=== PATIENT | male | born 1950 | race Caucasian/White ===

== ENCOUNTER 2016-12-13 12:33 | Emergency (ER) | payer MEDICARE, OTHER ==
[2016-12-13] MEDS ORDERED: NALOXONE HCL INJ 2 MG/2 ML DISP.SYRIN ONE (13:15)
[2016-12-13] MEDS ORDERED: DEXTROSE 5%-LACTATED RINGERS 1,000 ML IV ONE (13:28)
[2016-12-13] MEDS ORDERED: NALOXONE HCL INJ 2 MG/2 ML DISP.SYRIN IV ONE ×2 (13:31→13:43)
--- NOTE | 2016-12-13 13:32 | ER Document Report ---
ED Syncope and Near Syncope - General Mode of Arrival: Medic Information source: Patient TRAVEL OUTSIDE OF THE [place] IN LAST 30 DAYS: No - HPI Patient complains to provider of: Fainting Episode witnessed (by whom): Yes Symptoms prior to episode: Other - see above Context: Other - see above Current symptoms: Other - see above <RADHA SIMONS - Last Filed: 12/13/16 13:33> <JOON ALVARADO - Last Filed: 12/13/16 14:30> - General Stated Complaint: POSSIBLE POST SURGICAL REACTION Time Seen by Provider: 12/13/16 13:21 Notes: 66 year old male with history of hyperlipidemia (taking Lipitor) presents to the ED via EMS after having a syncopal episode while at [facility] following drainage and removal of an infected cyst to his right posterior shoulder this morning. Patient was given 5 mg Valium and Percocet at 1020 this morning and had a recorded heart rate of 73. After the procedure, the patient was helped up when he proceeded to pass out. Patient's heart rate was recorded down in the 40s. Patient was brought to the ED with a heart rate in the low 40s and a respiratory rate of 8. Patient was barely arousable. Patient was given Narcan and is awake and smiling now. Patient reports that he does not remember passing out. Patient's last meal was last night, but admits to having some coffee at 0800 this morning. (RADHA SIMONS) The report is that when the patient was sat up post procedure, he became glassy eyed and unresponsive. When he came through the ER door his respiratory rate was 8. He responded promptly to Narcan. (JOON ALVARADO) - Related Data Allergies/Adverse Reactions: No Known Allergies Allergy (Unverified 03/27/12 08:34) Past Medical History - General Information source: Patient - Social History Smoking Status: Never Smoker Frequency of alcohol use: Occasional Family History: Malignancy - Father of colon cancer and mother of pancreatic cancer. - Past Medical History Cardiac Medical History: Reports: Hx Hypercholesterolemia Denies: Hx Coronary Artery Disease, Hx Hypertension Musculoskeltal Medical History: Denies Hx Arthritis Past Surgical History: Reports: Hx Orthopedic Surgery - Arthroscopic right knee surgery 2006, Other - Cyst removal 2015. Denies: Hx Pacemaker - Immunizations Hx Diphtheria, Pertussis, Tetanus Vaccination: No <RADHA SIMONS - Last Filed: 12/13/16 13:33> Review of Systems - Review of Systems Constitutional: No symptoms reported EENT: No symptoms reported Cardiovascular: See HPI, Other - bradycardia Respiratory: No symptoms reported Gastrointestinal: No symptoms reported Genitourinary: No symptoms reported Male Genitourinary: No symptoms reported Musculoskeletal: No symptoms reported Skin: No symptoms reported Hematologic/Lymphatic: No symptoms reported Neurological/Psychological: See HPI, Lost consciousness -: Yes All other systems reviewed and negative <RADHA SIMONS - Last Filed: 12/13/16 13:33> Physical Exam - Vital signs Interpretation: Bradycardic - heart rate in the upper 40s - General General appearance: Alert In distress: None - HEENT Head: Normocephalic, Atraumatic Eyes: Normal Extraocular movements intact: Yes Pupils: PERRL - Respiratory Respiratory status: No respiratory distress Breath sounds: Normal - Cardiovascular Rhythm: Regular Heart sounds: Normal auscultation - Abdominal Inspection: Normal - Back Back: Normal - Extremities General upper extremity: Normal inspection, Normal ROM, Other - Bandage to the right posterior shoulder secondary to the cyst removal this morning. General lower extremity: Normal inspection, Normal ROM - Neurological Neuro grossly intact: Yes - Psychological Associated symptoms: Normal affect, Normal mood - Skin Skin Temperature: Warm Skin Moisture: Dry Skin Color: Normal <RADHA SIMONS - Last Filed: 12/13/16 13:33> Course - Laboratory Result Diagrams: 12/13/16 13:02 12/13/16 13:02 <KRISTYNRADHA - Last Filed: 12/13/16 13:33> - Laboratory Result Diagrams: 12/13/16 13:02 12/13/16 13:02 <JOON ALVARADO - Last Filed: 12/13/16 14:30> - Re-evaluation Re-evalutation: 12/13/16 14:26 The patient received 1 L of D5 LR. He also recently urinated about 800 mls of dark urine. He was given a Styrofoam cup to drink several cups of water before being discharged. (JOON ALVARADO) - Vital Signs Vital signs: Temp Pulse Resp BP Pulse Ox 97.3 F 46 L 14 139/82 H 100 12/13/16 12:46 12/13/16 12:46 12/13/16 14:01 12/13/16 14:01 12/13/16 14:01 - Laboratory Laboratory results interpreted by me: 12/13/16 12/13/16 13:02 13:02 Plt Count 147 L BUN 23 H Discharge <RADHA SIMONS - Last Filed: 12/13/16 13:33> <JOON ALVARADO - Last Filed: 12/13/16 14:30> - Discharge Clinical Impression: Dehydration, Bradycardia Overdose of opiate or related narcotic Qualifiers: Encounter type: initial encounter Injury intent: accidental or unintentional Qualified Code(s): T40.601A - Poisoning by unspecified narcotics, accidental ( unintentional), initial encounter Condition: Stable Disposition: HOME, SELF-CARE Additional Instructions: Your symptoms of lethargy, passing out, slow heart rate and depressed respiratory rate were caused by a combination of being dehydrated, and the narcotic pain medication you received. You were given a narcotic reversal agent and woke up promptly. If you need to take the Percocet that was prescribed by Dr. Duckworth, try breaking the pills in half for the first few doses to be sure they do not make you too drowsy. Drink plenty of fluids and eat a meal when you get home. RETURN TO THE EMERGENCY ROOM IF ANY NEW OR WORSENING SYMPTOMS. Referrals: VALERIE SIMONS MD [Primary Care Provider] - Follow up as needed Scribe Attestation: 12/13/16 14:30 I personally performed the services described in the documentation, reviewed and edited the documentation which was dictated to the scribe in my presence, and it accurately records my words and actions. (JOON ALVARADO) Scribe Documentation - Scribe Written by Scribe:: Facundo Mitchell, 12/13/2016 1348 acting as scribe for :: Galen <RADHA SIMONS - Last Filed: 12/13/16 13:33>
[2016-12-13 13:46] LABS: ABSOLUTE EOSINOPHILS # (AUTO) 0.1 10^3/uL (0.0-0.6); ABSOLUTE LYMPHOCYTES (AUTO) 1.4 10^3/uL (0.5-4.7); ABSOLUTE MONOCYTES (AUTO) 0.4 10^3/uL (0.1-1.4); BASOPHILS % (AUTO) 0.6 % (0-2); EOSINOPHILS % (AUTO) 1.3 % (0-6); HEMATOCRIT 42.1 % (37.9-51.0); HGB HCT DIFFERENCE -0.1; LYMPHOCYTES % (AUTO) 20.4 % (13-45); MEAN CORPUSCULAR HGB CONC 33.3 g/dL (32.0-36.0); MEAN CORPUSCULAR VOLUME 93 fl (80-97); MONOCYTES % (AUTO) 5.6 % (3-13); RED BLOOD COUNT 4.52 10^6/uL (4.35-5.55); RED CELL DISTRIBUTION WIDTH 12.8 % (11.5-14.0); SEGMENTED NEUTROPHILS % (AUTO) 72.1 % (42-78); WHITE BLOOD COUNT 6.9 10^3/uL (4.0-10.5)
[2016-12-13 13:48] LABS: ALANINE AMINOTRANSFERASE 53 U/L (21-72); ALBUMIN 4.2 g/dL (3.5-5.0); ALKALINE PHOSPHATASE 78 U/L (38-126); ANION GAP 11 (5-19); ASPARTATE AMINO TRANSFERASE 45 U/L (17-59); BILIRUBIN,TOTAL 1.2 mg/dL (0.2-1.3); BLOOD UREA NITROGEN 23 mg/dL (7-20); CALCIUM 10.1 mg/dL (8.4-10.2); CARBON DIOXIDE 28 mmol/L (22-30); CHLORIDE 104 mmol/L (98-107); CREATINE KINASE 71 U/L (55-170); CREATININE RESULT 0.98 mg/dL (0.52-1.25); GLUCOSE 89 mg/dL (75-110); POTASSIUM 4.5 mmol/L (3.6-5.0); SODIUM 142.7 mmol/L (137-145); TOTAL PROTEIN 7.4 g/dL (6.3-8.2)
[2016-12-13 13:59] LABS: CREATINE KINASE MB 1.13 ng/mL (<4.55)
[2016-12-13 14:00] LABS: TROPONIN I < 0.012 ng/mL
[2016-12-13 14:07] VITALS: BP 139/82
--- NOTE | 2016-12-14 05:32 | EKG REPORT ---
SEVERITY:- OTHERWISE NORMAL ECG - SINUS BRADYCARDIA : Confirmed by: Aileen Blackburn MD 14-Dec-2016 05:32:31
== END 2016-12-13 15:07 | disposition home or self-care (01) ==
LOC: ER 12:33
DX: T40.601A Poisoning by unspecified narcotics, accidental (unintentional), initial encounter (principal); E86.0 Dehydration; R00.1 Bradycardia, unspecified; Z79.899 Other long term (current) drug therapy
CPT/HCPCS: 93005; 99284; 96375; 96365; 36415; 82553; 82550; 85025; 80053; 84484; 93010; J2310

== ENCOUNTER → 2017-01-24 | Outpatient (CLI) | payer MEDICARE, OTHER | LOC: OD 11:45 | PROVIDERS: ATTEND Physician Assistant Medical | DX: R07.89 Other chest pain (principal) | CPT/HCPCS: 71020; 80053; 85025 ==

== ENCOUNTER → 2017-01-29 | Outpatient (CLI) | payer MEDICARE, OTHER ==
[2017-01-29 15:10] LABS: ALANINE AMINOTRANSFERASE 32 U/L (21-72); ALBUMIN 4.2 g/dL (3.5-5.0); ALKALINE PHOSPHATASE 67 U/L (38-126); ANION GAP 13 (5-19); ASPARTATE AMINO TRANSFERASE 31 U/L (17-59); BILIRUBIN,DIRECT 0.3 mg/dL (0.0-0.4); BILIRUBIN,TOTAL 1.6 mg/dL (0.2-1.3); BLOOD UREA NITROGEN 15 mg/dL (7-20); CARBON DIOXIDE 31 mmol/L (22-30); CHLORIDE 101 mmol/L (98-107); GLUCOSE 99 mg/dL (75-110); POTASSIUM 4.1 mmol/L (3.6-5.0); SODIUM 145.1 mmol/L (137-145); TOTAL PROTEIN 7.5 g/dL (6.3-8.2)
== END ==
LOC: OD 14:10
PROVIDERS: ATTEND Physician Assistant
DX: E87.5 Hyperkalemia (principal)
CPT/HCPCS: 36415; 80053

== ENCOUNTER 2017-05-23 07:50 | Day surgery (SDC) | payer OTHER, MEDICARE ==
[2017-05-16 09:19] LABS: ABSOLUTE EOSINOPHILS # (AUTO) 0.1 10^3/uL (0.0-0.6); ABSOLUTE LYMPHOCYTES (AUTO) 1.9 10^3/uL (0.5-4.7); ABSOLUTE MONOCYTES (AUTO) 0.5 10^3/uL (0.1-1.4); BASOPHILS % (AUTO) 0.7 % (0-2); EOSINOPHILS % (AUTO) 2.1 % (0-6); HEMATOCRIT 47.1 % (37.9-51.0); HEMOGLOBIN 16.4 g/dL (13.5-17.0); HGB HCT DIFFERENCE 2.1; LYMPHOCYTES % (AUTO) 28.5 % (13-45); MEAN CORPUSCULAR HEMOGLOBIN 32.6 pg (27.0-33.4); MEAN CORPUSCULAR HGB CONC 34.8 g/dL (32.0-36.0); MEAN CORPUSCULAR VOLUME 94 fl (80-97); MONOCYTES % (AUTO) 7.6 % (3-13); RED BLOOD COUNT 5.03 10^6/uL (4.35-5.55); RED CELL DISTRIBUTION WIDTH 12.9 % (11.5-14.0); SEGMENTED NEUTROPHILS % (AUTO) 61.1 % (42-78); WHITE BLOOD COUNT 6.5 10^3/uL (4.0-10.5)
[2017-05-16 09:22] LABS: APPEARANCE,URINE CLEAR; BILIRUBIN,URINE NEGATIVE (NEGATIVE); GLUCOSE, URINE NEGATIVE (NEGATIVE); KETONES,URINE NEGATIVE (NEGATIVE); LEUKOCYTE ESTERASE,URINE NEGATIVE (NEGATIVE); NITRITE,URINE NEGATIVE (NEGATIVE); PROTEIN,URINE NEGATIVE (NEGATIVE); URINE SPECIFIC GRAVITY 1.013; UROBILINOGEN,URINE NEGATIVE mg/dL (<2.0)
[2017-05-16 09:44] LABS: ANION GAP 10 (5-19); BLOOD UREA NITROGEN 24 mg/dL (7-20); CALCIUM 9.9 mg/dL (8.4-10.2); CARBON DIOXIDE 34 mmol/L (22-30); CHLORIDE 100 mmol/L (98-107); CREATININE RESULT 0.99 mg/dL (0.52-1.25); GLUCOSE 84 mg/dL (75-110); POTASSIUM 4.6 mmol/L (3.6-5.0); SODIUM 143.5 mmol/L (137-145)
--- NOTE | 2017-05-16 13:55 | EKG REPORT ---
SEVERITY:- OTHERWISE NORMAL ECG - SINUS BRADYCARDIA LEFT AXIS DEVIATION : Confirmed by: Michoacano Allan MD 16-May-2017 13:53:56
--- NOTE | 2017-05-17 17:26 | RADIOLOGY REPORT (SQ) ---
EXAM DESCRIPTION: CHEST PA/LATERAL COMPLETED DATE/TIME: 05/16/2017 9:48 am REASON FOR STUDY: PRE-OP COMPARISON: Two-view chest 01/24/2017 EXAM PARAMETERS: NUMBER OF VIEWS: two views TECHNIQUE: Digital Frontal and Lateral radiographic views of the chest acquired. RADIATION DOSE: NA LIMITATIONS: none FINDINGS: LUNGS AND PLEURA: No opacities, masses or pneumothorax. No pleural effusion. MEDIASTINUM AND HILAR STRUCTURES: No masses or contour abnormalities. HEART AND VASCULAR STRUCTURES: Heart normal size. No evidence for failure. BONES: No acute findings. HARDWARE: None in the chest. OTHER: No other significant finding. IMPRESSION: NO SIGNIFICANT RADIOGRAPHIC FINDING IN THE CHEST. TECHNICAL DOCUMENTATION: JOB ID: [id number] [email or web address]- All Rights Reserved
[~2017-05-23 07:50] MED LIST: BUPIVACAINE HCL 0.25 % INJ/PF (2.5 MG/1 ML) 30 ML VIAL ONE; CEFAZOLIN 2 GM/D5W RTU 2 GM/50 ML RTUPB IV PRN; EPINEPHRINE INJ/PF 1 MG/1 ML AMPULE ONE; LACTATED RINGERS 1000 ML IV PRN; LIDOCAINE 0.5% INJ-PF (5 MG/ML) 50 ML SDV SUBCUT PRN
[2017-05-23] MEDS ORDERED: GLYCOPYRROLATE INJ 0.4 MG/2 ML VIAL ONE (10:26)
[2017-05-23] MEDS ORDERED: DEXAMETHASONE SOD PHOSPHATE INJ 4 MG/1 ML VIAL ONE (10:26)
[2017-05-23] MEDS ORDERED: SUCCINYLCHOLINE CHLORIDE INJ 200 MG/10 ML VIAL ONE (10:26)
[2017-05-23] MEDS ORDERED: NEOSTIGMINE METHYLSULFATE 10 MG/10 ML VIAL ONE (10:26)
[2017-05-23] MEDS ORDERED: ONDANSETRON HCL INJ/PF 4 MG/2 ML SDV ONE (10:26)
[2017-05-23] MEDS ORDERED: METOCLOPRAMIDE HCL INJ/PF 10 MG/2 ML SDV ONE (10:26)
[2017-05-23] MEDS ORDERED: ROCURONIUM BROMIDE INJ 50 MG/5 ML VIAL IV ONE (10:26)
[2017-05-23] MEDS ORDERED: LIDOCAINE 2% INJ-PF (20 MG/ML) 10 ML AMPUL ONE (10:26)
[2017-05-23] MEDS ORDERED: HYDROMORPHONE HCL INJ/PF 2 MG/ML AMPULE ONE (10:51)
[2017-05-23] MEDS ORDERED: MIDAZOLAM 2 MG/2 ML INJ ONE (10:51)
[2017-05-23] MEDS ORDERED: FENTANYL CITRATE INJ/PF 100 MCG/2 ML AMPUL ONE (10:51)
[2017-05-23] MEDS ORDERED: ACETAMINOPHEN 100 ML IV ONE (10:52)
[2017-05-23] MEDS ORDERED: EPHEDRINE SULFATE INJ 50 MG/1 ML AMPULE ONE (10:52)
[2017-05-23] MEDS ORDERED: IBUPROFEN INJ 800 MG/8 ML VIAL IV ONE (10:52)
[2017-05-23] MEDS ORDERED: PROPOFOL INJ 200 MG/20 ML VIAL IV ONE (10:52)
[2017-05-23] MEDS ORDERED: EPINEPHRINE INJ/PF 1 MG/1 ML AMPULE ONE (13:06)
[2017-05-23] MEDS ORDERED: MEPERIDINE HCL/PF INJ 25 MG/1 ML DISP.SYRIN IV PRN (13:07)
[2017-05-23] MEDS ORDERED: ONDANSETRON HCL INJ/PF 4 MG/2 ML SDV IV PRN (13:07)
[2017-05-23] MEDS ORDERED: DIPHENHYDRAMINE HCL 50 MG/ML VIAL IV PRN (13:07)
[2017-05-23] MEDS ORDERED: FENTANYL CITRATE INJ/PF 100 MCG/2 ML AMPUL IV PRN ×3 (13:07)
--- NOTE | 2017-05-23 13:54 | Operative Report ---
Operative Report DATE OF SURGERY: 05/23/17 PREOPERATIVE DIAGNOSIS: Right shoulder rotator cuff tear with partial long head of biceps tear with medial subluxation POSTOPERATIVE DIAGNOSIS: Same OPERATION: Right arthroscopic rotator cuff repair and biceps tenotomy SURGEON: RONEY MARTINES ANESTHESIA: GA TISSUE REMOVED OR ALTERED: none COMPLICATIONS: None ESTIMATED BLOOD LOSS: 30 mL INTRAOPERATIVE FINDINGS: As above PROCEDURE: IMPLANTS: 2 5.5mm bio composite corkscrew anchors and 2 4.75mm bio composite swivel locks DESCRIPTION OF PROCEDURE: Patient was brought to the operating room placed in supine position. After successfully induced and intubated the patient patient was placed in the beachchair position the head and endotracheal tube was secured appropriately. The right shoulder shoulder was prepped and draped in a normal surgical fashion. A timeout was done identifying the right shoulder shoulder as the correct site. After inflating the glenohumeral joint with sterile saline solution an 11 blade was used to establish the posterior portal. The arthroscope was introduced and return of fluid was seen showing that we successfully penetrated the glenohumeral joint. With the use of spinal needle we're able to suellen the anterior portal and using an 11 blade able to establish anterior portal. A cannula was introduced through the anterior portal. At this point diagnostic scope was done. Patient noted to have full-thickness tear of the supraspinatus and infraspinatus tendon. Mild retraction. I was able to mobilize and bring it back laterally therefore repair was obtainable. Noting that the long head of the biceps was medially subluxed and partially torn and proceeded to use scissors and due to biceps tenotomy. A lateral portal was established 11 blade. 4.0mm shaver was introduced and was used to prepare the tear and the frontal bone for preparation of anchor placement. Once I was satisfied with the preparation I then redirected my scope into the subacromial space. I did a bursectomy and expose the rotator cuff in the subacromial space. I had a bleeder who I need to coagulate and at that point was able to visualize the tear in the bone. The plan was applied to anchors for the repair. A percutaneous incision was then just adjacent to the acromion on the lateral aspect. Through this percutaneous hole the awl was used to prepare the hole for an anchor. Sidney was percutaneously sent flushed with the bone just adjacent to the articular margin.Same steps were taken for placement of our second anchor more posteriorly. Sutures were passed through the anterior portal for proper suture management. With the use of the scorpion and I proceeded to pass the sutures through the rotator cuff tendon with proper suture management was able to pass the strands either through percutaneous hole or the anterior portal. Once I was satisfied with placement of all my sutures I then proceeded to do my arthroscopic knots. At this point the strands were used to do our lateral row. Bicomposite show out was used and the lateral aspect of the humerus was then cleaned off with a shaver and electrocautery. Once identified once I was replacement I proceeded to use my awl to do my hole. This this point the sutures were adequately tensioned and inserted and secured securing and increasing the footprint of the rotator cuff repair. Remaining strands were cut with the arthroscopic cutter. Final pictures were taking showing my repair. At this point fluid from the shoulder was removed camera and instruments were all removed. I proceeded to close my portal sites with 3-0 nylon. Xeroform 4 x 4 dressing followed by ABDs pads and Medipore tape was applied. Patient was placed in a sling and returned to supine position where he was successfully extubated and taken to PACU in stable condition.
[2017-05-23] MEDS ORDERED: OXYCODONE-ACETAMINOPHEN 5-325 MG TABLET PO PRN ×2 (13:57)
--- NOTE | 2017-05-23 13:57 | PDOC DISCHARGE SUMMARY ---
Discharge Summary (SDC) - Discharge Final Diagnosis: Right shoulder rotator cuff repair and biceps tenotomy Date of Surgery: 05/23/17 Discharge Date: 05/23/17 Forms: ASU Anesthesia D/C Instruction, Discharge POC-Surgical Service Treatment or Instructions: Patient is instructed to follow up in 10-14 days. Patient instructed to remove dressing in 4 days then can shower and apply Band- Aids as needed. Patient to wear sling for comfort but okay to remove for shower and pendulum exercises. Pendulum exercises are instructed to be done 3 times a day ideally with breakfast, lunch, dinners and showers. Patient instructed to call if there is any signs of redness or drainage fevers or chills. Prescriptions: Ondansetron HCl [Zofran 4 mg Tablet] 1 - 2 tab PO Q8HP PRN #20 tablet PRN Reason: Oxycodone HCl/Acetaminophen [Percocet 5-325 mg Tablet] 1 - 2 tab PO ASDIR PRN # 40 tablet PRN Reason: Referrals: RONEY COX MD [ACTIVE STAFF] - Discharge Diet: Regular Respiratory Treatments at Home: Deep Breathing/Coughing Discharge Activity: No Driving, No Lifting/Push/Pulling, Walk Frequently Report the Following to Your Physician Immediately: Shortness of Breath, Vomiting, Fever over 101 Degrees, Unusual Bleeding, Redness, Swelling, Warmth, Drainage-Yellow, Drainage-Rivero, Drainage-Green, Drainage-Foul Smelling
[2017-05-23 17:45] VITALS: BP 125/80
== END 2017-05-23 17:35 | disposition home or self-care (01) ==
LOC: OROUT 07:50
PROVIDERS: ATTEND Orthopaedic Surgery
PROC: 0LN Tendons, Release (ICD-10-PCS; 2017-05-23)
PROC: 0LQ14ZZ Repair Right Shoulder Tendon, Percutaneous Endoscopic Approach (ICD-10-PCS; principal; 2017-05-23 10:00)
DX: M75.121 Complete rotator cuff tear or rupture of right shoulder, not specified as traumatic (principal); M19.011 Primary osteoarthritis, right shoulder; M25.512 Pain in left shoulder; S46.111A Strain of muscle, fascia and tendon of long head of biceps, right arm, initial encounter; X58.XXXA Exposure to other specified factors, initial encounter; Z79.899 Other long term (current) drug therapy
CPT/HCPCS: 29827; 93005; 36415; 85025; 80048; 81001; 71020; 93010; 29999; C1713; J2250; J3490 ×3; J1100; J0171; J2765; J1170; J0330; J2405; J2704; J0690; J0131; J1741; 1630; J3010

== ENCOUNTER 2017-05-29 16:18 | Emergency (ER) | payer OTHER, MEDICARE ==
--- NOTE | 2017-05-29 17:10 | ER Document Report ---
ED Medical Screen (RME) - General Chief Complaint: Swelling of Tongue Stated Complaint: TONGUE SWELLING Time Seen by Provider: 05/29/17 17:08 Notes: Patient presents with problems deviating his tongue to the right. Patient had shoulder surgery approximately 5 days ago. He states after the endotracheal tube was removed and they were feeding him in recovery he noticed that he could not swallow on the right. He felt that he may have bit his tongue. He went size primary care doctor today who was concerned of a stroke and sent the patient to the emergency department. Patient denies any other problems. He has no problems breathing. On cursory exam the tongue is unremarkable and shows no signs of injury or swelling. Posterior pharynx also shows no significant signs of swelling or inflammation. Floor of the mouth is also unremarkable. It is noticed the patient cannot deviate his tongue fully to the right but has no limits on left deviation. It seems suggestive of a possible hypoglossal injury. TRAVEL OUTSIDE OF THE [place] IN LAST 30 DAYS: No - Related Data Allergies/Adverse Reactions: No Known Allergies Allergy (Verified 05/23/17 08:03) Past Medical History - Social History Frequency of alcohol use: Occasional Drug Abuse: None - Past Medical History Cardiac Medical History: Reports: Hx Hypercholesterolemia Denies: Hx Coronary Artery Disease, Hx Heart Attack, Hx Hypertension Pulmonary Medical History: Denies: Hx Asthma, Hx Bronchitis, Hx COPD, Hx Pneumonia Neurological Medical History: Denies: Hx Cerebrovascular Accident, Hx Seizures Renal/ Medical History: Denies: Hx Peritoneal Dialysis Musculoskeltal Medical History: Denies Hx Arthritis Past Surgical History: Reports: Hx Orthopedic Surgery - Arthroscopic right knee surgery 2006, Other - Cyst removal 2015. Denies: Hx Pacemaker - Immunizations Hx Diphtheria, Pertussis, Tetanus Vaccination: No Physical Exam - Vital signs Vitals: Temp Pulse Resp BP Pulse Ox 97.8 F 72 16 138/99 H 96 05/29/17 16:57 05/29/17 16:57 05/29/17 16:57 05/29/17 16:57 05/29/17 16:57 Course - Vital Signs Vital signs: Temp Pulse Resp BP Pulse Ox 97.8 F 72 16 138/99 H 96 05/29/17 16:57 05/29/17 16:57 05/29/17 16:57 05/29/17 16:57 05/29/17 16:57
[2017-05-29 17:40] LABS: ABSOLUTE EOSINOPHILS # (AUTO) 0.1 10^3/uL (0.0-0.6); ABSOLUTE LYMPHOCYTES (AUTO) 1.7 10^3/uL (0.5-4.7); ABSOLUTE MONOCYTES (AUTO) 0.6 10^3/uL (0.1-1.4); ABSOLUTE NEUT (AUTO) 5.8 10^3/uL (1.7-8.2); BASOPHILS % (AUTO) 0.6 % (0-2); EOSINOPHILS % (AUTO) 1.5 % (0-6); HEMATOCRIT 48.9 % (37.9-51.0); HEMOGLOBIN 16.8 g/dL (13.5-17.0); HGB HCT DIFFERENCE 1.5; LYMPHOCYTES % (AUTO) 20.6 % (13-45); MEAN CORPUSCULAR HEMOGLOBIN 32.2 pg (27.0-33.4); MEAN CORPUSCULAR HGB CONC 34.4 g/dL (32.0-36.0); MEAN CORPUSCULAR VOLUME 94 fl (80-97); MONOCYTES % (AUTO) 7.5 % (3-13); RED BLOOD COUNT 5.22 10^6/uL (4.35-5.55); RED CELL DISTRIBUTION WIDTH 12.7 % (11.5-14.0); SEGMENTED NEUTROPHILS % (AUTO) 69.8 % (42-78); WHITE BLOOD COUNT 8.4 10^3/uL (4.0-10.5)
--- NOTE | 2017-05-29 17:59 | RADIOLOGY REPORT (SQ) ---
EXAM DESCRIPTION: CT HEAD WITHOUT COMPLETED DATE/TIME: 05/29/2017 5:37 pm REASON FOR STUDY: tongue deviation to right is weak COMPARISON: None. TECHNIQUE: Axial images acquired through the brain without intravenous contrast. Images reviewed wi th bone, brain and subdural windows. Images stored on PACS. All CT scanners at this facility use dose modulation, iterative reconstruction, and/or weight based d osing when appropriate to reduce radiation dose to as low as reasonably achievable (ALARA). [facility]: Dose Right [facility]: CareDose [facility]: Dose Right [facility]: Teradose 4D [facility]: [employer] Technologies RADIATION DOSE: Up-to-date CT equipment and radiation dose reduction techniques were employed. CTDIv ol: 62.7 mGy. DLP: 1163 mGy-cm. mGy. LIMITATIONS: None. FINDINGS: VENTRICLES: Normal size and contour. CEREBRUM: No masses. No hemorrhage. No midline shift. No evidence for acute infarction. Normal gra y/white matter differentiation. No areas of low density in the white matter. CEREBELLUM: No masses. No hemorrhage. No alteration of density. No evidence for acute infarction. EXTRAAXIAL SPACES: No fluid collections. No masses. ORBITS AND GLOBE: No intra- or extraconal masses. Normal contour of globe without masses. CALVARIUM: No fracture. PARANASAL SINUSES: No fluid or mucosal thickening. SOFT TISSUES: No mass or hematoma. OTHER: No other significant finding. IMPRESSION: No acute intracranial findings. COMMENT: Quality ID # [id number]: Final reports with documentation of one or more dose reduction techniques (e.g., Automated exposure control, adjustment of the mA and/or kV according to patient size, use of iterative reconstruction technique) TECHNICAL DOCUMENTATION: JOB ID: [id number]- All Rights Reserved
[2017-05-29 18:07] LABS: ANION GAP 10 (5-19); BLOOD UREA NITROGEN 27 mg/dL (7-20); CALCIUM 9.7 mg/dL (8.4-10.2); CARBON DIOXIDE 32 mmol/L (22-30); CHLORIDE 100 mmol/L (98-107); CREATININE RESULT 1.06 mg/dL (0.52-1.25); GLUCOSE 93 mg/dL (75-110); POTASSIUM 5.3 mmol/L (3.6-5.0)
--- NOTE | 2017-05-29 19:36 | ER Document Report ---
ED Oral Problem <CHRISTIANOJOON - Last Filed: 05/29/17 19:40> - General Mode of Arrival: Ambulatory Information source: Patient TRAVEL OUTSIDE OF THE [place] IN LAST 30 DAYS: No - HPI Patient complains to provider of: Other - tongue swelling Severity: None Associated symptoms: None Recently seen / treated by doctor/dentist: Yes <JOY SHIELDS - Last Filed: 05/29/17 20:50> - General Chief Complaint: Swelling of Tongue Stated Complaint: TONGUE SWELLING Time Seen by Provider: 05/29/17 17:08 Notes: Patient is a 66 year old male that presents to the emergency department today with complaints of a sensation that his tongue is swelling. Patient states he had shoulder surgery one week ago and noticed this sensation since having the surgery. Patient states he waited to see if it cleared up thinking it could have been from intubation but it has not subsided. Patient denies any shortness of breath or difficulty swallowing. (JOY SHIELDS) - Related Data Allergies/Adverse Reactions: No Known Allergies Allergy (Verified 05/23/17 08:03) Past Medical History - General Information source: Patient - Social History Smoking Status: Former Smoker Cigarette use (# per day): No Frequency of alcohol use: Occasional Drug Abuse: None Lives with: Family Family History: Reviewed & Not Pertinent, Malignancy - Father of colon cancer and mother of pancreatic cancer. Patient has suicidal ideation: No Patient has homicidal ideation: No - Past Medical History Cardiac Medical History: Reports: Hx Hypercholesterolemia Past Surgical History: Reports: Hx Orthopedic Surgery - Arthroscopic right knee surgery 2006, Other - Cyst removal 2016 - Immunizations Hx Diphtheria, Pertussis, Tetanus Vaccination: No <JOY SHIELDS - Last Filed: 05/29/17 20:50> Review of Systems - Review of Systems Constitutional: No symptoms reported EENT: See HPI, Other - tongue swelling Cardiovascular: No symptoms reported Respiratory: No symptoms reported Gastrointestinal: No symptoms reported Genitourinary: No symptoms reported Male Genitourinary: No symptoms reported Musculoskeletal: No symptoms reported Skin: No symptoms reported Hematologic/Lymphatic: No symptoms reported Neurological/Psychological: No symptoms reported -: Yes All other systems reviewed and negative <JOY SHIELDS - Last Filed: 05/29/17 20:50> Physical Exam - HEENT Mouth/Lips: Other - There appears to be about a 6 mm long laceration on the right lateral base of the tongue corresponding to where a laryngoscope blade may have slipped off and gallops the area. There is some fat protruding through the wound. There may be some minimal edema to that part of the tongue, is difficult to say because exposing that area causes the whole side of the tongue to look swollen which occurs looking at either side of the tongue with the tongue blade and the patient protruding the tongue and deviating it to the opposite side.. Pharynx: Normal Neck: Normal. No: Lymphadenopathy <JOON ALVARADO - Last Filed: 05/29/17 19:40> <JOY SHIELDS - Last Filed: 05/29/17 20:50> - Vital signs Vitals: Temp Pulse Resp BP Pulse Ox 97.8 F 72 16 138/99 H 96 05/29/17 16:57 05/29/17 16:57 05/29/17 16:57 05/29/17 16:57 05/29/17 16:57 - Notes Notes: Physical Exam: General: Alert, appears well. HEENT: Normocephalic. PERRL. Extraocular movements intact. Oropharynx clear. 6 mm long laceration on the right lateral base of the tongue where patient complains of pain and swelling. Neck: Supple. Non-tender. Respiratory: No respiratory distress. Clear and equal breath sounds bilaterally. Cardiovascular: Regular rate and rhythm. Abdominal: Normal Inspection. Non-tender. No distension. Normal Bowel Sounds. Back: Non-tender. No deformity or step off. Extremities: Moves all four extremities. Upper extremities: Normal inspection. Normal ROM. Lower extremities: Normal inspection. No edema. Normal ROM. Neurological: Cranial nerves II-XII grossly intact bilaterally. Patient able to deviate tongue fully in both right and left directions. Patient does state when sticking out his tongue to the left, he notices pain. Normal cognition. AAOx4. Normal speech. Psychological: Normal affect. Normal Mood. Skin: Warm. Dry. Normal color. (JOY SHIELDS) Course - Laboratory Result Diagrams: 05/29/17 17:25 05/29/17 17:25 <JOON ALVARADO - Last Filed: 05/29/17 19:40> - Laboratory Result Diagrams: 05/29/17 17:25 05/29/17 17:25 <JOY SHIELDS - Last Filed: 05/29/17 20:50> - Re-evaluation Re-evalutation: 05/29/17 19:[address] scan of the head was ordered at triage and done prior to my seeing and examining the patient. (JOON ALVARADO) - Vital Signs Vital signs: Temp Pulse Resp BP Pulse Ox 97.8 F 72 12 130/92 H 94 05/29/17 16:57 05/29/17 16:57 05/29/17 19:41 05/29/17 19:41 05/29/17 19:41 - Laboratory Laboratory results interpreted by me: 05/29/17 17:25 Potassium 5.3 H Carbon Dioxide 32 H BUN 27 H Discharge <JOON ALVARADO - Last Filed: 05/29/17 19:40> <JOY SHIELDS - Last Filed: 05/29/17 20:50> - Discharge Clinical Impression: Laceration of tongue without complication Qualifiers: Encounter type: initial encounter Qualified Code(s): S01.512A - Laceration without foreign body of oral cavity, initial encounter Condition: Stable Disposition: HOME, SELF-CARE Additional Instructions: Your examination shows a small laceration on the right lateral base of your tongue which is causing her symptoms. This most likely occurred when the laryngoscope scope blade slipped off that side of your tongue during the intubation. This wound should heal on its own. Do oral rinses with warm salt water frequently. Avoid carbonated beverages, containing beverages, spicy foods. Try to do all the chewing and swallowing to the left side of your mouth. Limit talking as this will decrease movement and stretching in the area of the laceration. Follow-up with [facility] if not improving over the next week. RETURN TO THE EMERGENCY ROOM IF ANY NEW OR WORSENING SYMPTOMS. Referrals: VALERIE SIMONS MD [Primary Care Provider] - Follow up as needed Scribe Attestation: 05/29/17 19:43 I personally performed the services described in the documentation, reviewed and edited the documentation which was dictated to the scribe in my presence, and it accurately records my words and actions. (JOON ALVARADO) Scribe Documentation - Scribe Written by Scribe:: Facundo Anderson, [id number] acting as scribe for :: Christiano <JOY SHIELDS - Last Filed: 05/29/17 20:50>
[2017-05-29 19:55] VITALS: BP 130/92
== END 2017-05-29 19:53 | disposition home or self-care (01) ==
LOC: ER 16:18
DX: S01.512A Laceration without foreign body of oral cavity, initial encounter (principal); R22.0 Localized swelling, mass and lump, head; Z87.891 Personal history of nicotine dependence; X58.XXXA Exposure to other specified factors, initial encounter
CPT/HCPCS: 36415; 70450; 80048; 85025; 99284

== ENCOUNTER → 2019-11-04 | Outpatient (CLI) | payer OTHER, MEDICARE ==
--- NOTE | 2019-11-04 18:35 | EKG REPORT ---
SEVERITY:- OTHERWISE NORMAL ECG - SINUS RHYTHM LEFT AXIS DEVIATION : Confirmed by: Aileen Blackburn MD 04-Nov-2019 18:34:35
== END ==
LOC: OD 08:40
PROVIDERS: ATTEND Orthopaedic Surgery
DX: Z01.810 Encounter for preprocedural cardiovascular examination (principal)
CPT/HCPCS: 93005; 93010